=== PATIENT | female | born 1950 | race Caucasian/White ===

== ENCOUNTER 2016-11-19 10:04 | Emergency (ER) | payer MEDICARE, OTHER ==
[2005-05-22 17:50] VITALS: BP 113/49
[~2016-11-19] VITALS: Ht 154.9 cm; Wt 77.3 kg
[~2016-11-19 10:04] MED LIST: 00186-0370-20 IH; 00186-0372-20; CIPRO 250MG TA250 MG PO; COMBIVENT INH14.7 GM IH; DECADRON 1MG TAB1 MG PO; DOCETAXEL; IPRATROPIUM BROM3 M1 IH; LEVAQUIN 5500 MG/TA1 PO; PERCOCET 5/321 UDTAB PO; PREDNISONE20 MG PO; PROAIR HFA0.09 MG/AC; PROVENTIL0.09 MG/A1 IH; RT SPIRIVA18 MCG; RT SPIRIVA18 MCG IH; SPIRIVA INH IH; SPIRIVA18 MCG IH; TESSALON PERLE200 MG PO; VENTOLIN0.09 MG IH; VICODIN 5/5001 UDTAB PO; VITAMIN D1000 IU; ZITHROMAX 250M250 MG PO; ZOCOR 40MG40 MG PO; [UNRECOGNIZED DRUG - OTHER]; [UNRECOGNIZED DRUG - REMARK]
[2016-11-19 10:11] VITALS: TEMP 97.2
[2016-11-19] MEDS ORDERED: PROAIR HFA0.09 MG/AC IH (10:36)
[2016-11-19 11:28] LABS: BASO # 0.1 (0.0-0.2); BASO % 0.8 % (0.0-2.0); EOS # 0.1 (0.0-0.7); EOS % 0.8 % (0-4.0); GRAN # 5.6 (1.4-6.5); GRAN % 62.8 % (42.2-75.2); HEMATOCRIT 49.4 % (37.0-47.0); HEMOGLOBIN 15.9 g/dl (12.5-16.0); LYMPH # 2.4 (1.2-3.4); LYMPH % 27.4 % (20.0-51.0); MEAN CELL VOLUME 93 fl (80.0-100.0); MEAN CORPUSCULAR HEMOGLOBIN 30 pg (27.0-31.0); MEAN CORPUSCULAR HGB CONC 32 g/dl (33.0-37.0); MEAN PLATELET VOLUME 9.9 fl (7.4-10.4); MONO # 0.7 (0.1-0.6); MONO % 7.9 % (1.7-9.3); PLATELET COUNT 320 K/mm3 (130-400); RED BLOOD COUNT 5.34 M/mm3 (4.10-5.30); REDCELL DISTRIBUTION WIDTH-CV 15.6 % (11.5-14.5); WHITE BLOOD COUNT 8.9 K/mm3 (4.8-10.8)
[2016-11-19 11:40] LABS: ADJUSTED CALCIUM 9.5 mg/dL (8.4-10.2); ALANINE AMINOTRANSFERASE 15 U/L (9-52); ALBUMIN 4.1 gm/dL (3.5-5.0); ALKALINE PHOSPHATASE 86 U/L (50-136); ANION GAP 5 mmol/L (7-16); BILIRUBIN,TOTAL 0.8 mg/dL (0.0-1.0); BLOOD UREA NITROGEN 11 mg/dL (7-17); C-REACTIVE PROTEIN 1.2 mg/dL (0.0-0.9); CALCIUM 9.6 mg/dL (8.4-10.2); CARBON DIOXIDE 29 mmol/L (22-30); CHLORIDE 102 mmol/L (98-107); CREATININE, serum 0.53 mg/dL (0.52-1.25); GLUCOSE 93 mg/dL (74-106); LIPASE 33 U/L (23-300); POTASSIUM 4.1 mmol/L (3.4-5.0); PROTHROMBIN TIME 10.7 SECONDS (9.7-12.8); SODIUM 137 mmol/L (137-145); TOTAL PROTEIN 7.5 gm/dL (6.4-8.2)
[2016-11-19 11:42] LABS: PARTIAL THROMBOPLASTIN TIME 33.7 SECONDS (26.0-37.0)
[2016-11-19 11:48] LABS: B-TYPE NATRIURETIC PEPTIDE 261 pg/mL (0-125); TROPONIN-I < 0.012 ng/mL (0.000-0.034)
[2016-11-19] MEDS ORDERED: NITROSTAT0.3 MG SL (13:13)
[2016-11-19] MEDS ORDERED: PREDNISONE20 MG PO (13:13)
[2016-11-19 13:39] VITALS: BP 115/69; PULSE 91
== END 2016-11-19 13:41 | disposition home or self-care (01) ==
LOC: COL.ER 10:04
PROVIDERS: Emergency Medicine
DX: R07.89 Other chest pain (principal); J44.9 Chronic obstructive pulmonary disease, unspecified; F17.210 Nicotine dependence, cigarettes, uncomplicated; Z87.09 Personal history of other diseases of the respiratory system
CPT/HCPCS: J7512

== ENCOUNTER → 2017-01-12 | Outpatient (CLI) | payer MEDICARE, OTHER ==
[~2017-01-12] MED LIST changes: +NITROSTAT0.3 MG SL; +PROAIR HFA0.09 MG/AC IH
== END ==
LOC: MC.RAD 15:34
DX: Z12.31 Encounter for screening mammogram for malignant neoplasm of breast (principal)

== ENCOUNTER → 2017-01-19 | Outpatient (CLI) | payer MEDICARE, OTHER | LOC: MC.RAD 12:45 | DX: R92.2 Inconclusive mammogram (principal) ==

== ENCOUNTER 2017-11-08 11:05 | Observation (INO) | payer MEDICARE, OTHER ==
[~2017-11-08] VITALS: Ht 154.9 cm; Wt 81.8 kg
[2017-11-08] MEDS ORDERED: LIPITOR 10MG10 MG PO (11:38)
[2017-11-08] MEDS ORDERED: DRISDOL50000 IU PO (11:40)
[2017-11-08 12:13] LABS: BASO % 0.3 % (0.0-2.0); EOS % 0.4 % (0-4.0); GRAN # 6.4 (1.4-6.5); GRAN % 68.6 % (42.2-75.2); HEMATOCRIT 49.8 % (37.0-47.0); HEMOGLOBIN 15.9 g/dl (12.5-16.0); LYMPH # 2.1 (1.2-3.4); LYMPH % 21.9 % (20.0-51.0); MEAN CELL VOLUME 95 fl (80.0-100.0); MEAN CORPUSCULAR HEMOGLOBIN 30 pg (27.0-31.0); MEAN CORPUSCULAR HGB CONC 32 g/dl (33.0-37.0); MEAN PLATELET VOLUME 10.2 fl (7.4-10.4); MONO # 0.8 (0.1-0.6); MONO % 8.5 % (1.7-9.3); PLATELET COUNT 270 K/mm3 (130-400); RED BLOOD COUNT 5.25 M/mm3 (4.10-5.30); REDCELL DISTRIBUTION WIDTH-CV 16.6 % (11.5-14.5)
[2017-11-08 12:25] LABS: ALBUMIN 3.7 gm/dL (3.5-5.0); BILIRUBIN,TOTAL 0.7 mg/dL (0.0-1.0); C-REACTIVE PROTEIN 1.1 mg/dL (0.0-0.9); CALCIUM 9.2 mg/dL (8.4-10.2); CREATININE, serum 0.59 mg/dL (0.52-1.25); POTASSIUM 4.1 mmol/L (3.4-5.0); TOTAL PROTEIN 6.8 gm/dL (6.4-8.2)
[2017-11-08] MEDS ORDERED: PREDNISONE20 MG PO (13:02)
[2017-11-08] MEDS ORDERED: ZITHROMAX Z PA250 MG PO (13:22)
[2017-11-08 14:11] LABS: ARTERIAL BLD GAS O2 SATURATION 90.9 % (92-100); ARTERIAL BLD GAS TCO2 CT 35.4; ARTERIAL BLOOD GAS BASE EXCESS 5.2 (-2-2); ARTERIAL BLOOD GAS HCO3 33.5 meq/L (22-26); ARTERIAL BLOOD GAS PCO2 63.6 mmHg (35-45); ARTERIAL BLOOD GAS PO2 60.2 mmHg (80-100); ARTERIAL BLOOD GAS pH 7.34 (7.35-7.45)
[2017-11-08 16:35] VITALS: BP 125/70; PULSE 104; TEMP 98.7
[2017-11-08 20:34] VITALS: BP 110/48; PULSE 108; TEMP 99.2
[2017-11-09 00:51] VITALS: BP 124/64; PULSE 99; TEMP 98.9
[2017-11-09 04:28] VITALS: BP 124/67; PULSE 95; TEMP 97.6
[2017-11-09 07:35] LABS: CALCIUM 9.3 mg/dL (8.4-10.2); CREATININE, serum 0.47 mg/dL (0.52-1.25); POTASSIUM 4.3 mmol/L (3.4-5.0)
[2017-11-09 08:19] VITALS: BP 113/56; PULSE 101; TEMP 98.2
[2017-11-09 11:24] VITALS: BP 112/52; PULSE 95; TEMP 98.5
[2017-11-09] MEDS ORDERED: PREDNISONE20 MG PO (12:02)
== END 2017-11-09 15:00 | disposition home or self-care (01) ==
LOC: COL.ER 11:05 → MEDICAL 14:22
PROVIDERS: Family Medicine; Internal Medicine
DX: J96.02 Acute respiratory failure with hypercapnia (principal); J44.1 Chronic obstructive pulmonary disease with (acute) exacerbation; E78.5 Hyperlipidemia, unspecified; R00.0 Tachycardia, unspecified; Z90.12 Acquired absence of left breast and nipple; Z79.51 Long term (current) use of inhaled steroids; Z96.653 Presence of artificial knee joint, bilateral; Z85.3 Personal history of malignant neoplasm of breast; Z87.891 Personal history of nicotine dependence
CPT/HCPCS: G0378; G8978-GP; G8979-GP; J1650; J2920; J2930

== ENCOUNTER 2018-09-11 23:01 | Emergency (ER) | payer MEDICARE, OTHER ==
[2005-05-22 17:50] VITALS: BP 113/49
[~2018-09-11] VITALS: Ht 154.9 cm; Wt 81.8 kg
[~2018-09-11 23:01] MED LIST changes: +DRISDOL50000 IU PO; +LIPITOR 10MG10 MG PO; +ZITHROMAX Z PA250 MG PO
[2018-09-11 23:04] VITALS: TEMP 98.1
[2018-09-11 23:41] LABS: BASO # 0.1 (0.0-0.2); BASO % 0.3 % (0.0-2.0); EOS # 0.1 (0.0-0.7); EOS % 0.3 % (0-4.0); GRAN # 16.6 (1.4-6.5); GRAN % 87.2 % (42.2-75.2); HEMATOCRIT 41.3 % (37.0-47.0); HEMOGLOBIN 12.8 g/dl (12.5-16.0); LYMPH # 1.3 (1.2-3.4); LYMPH % 6.8 % (20.0-51.0); MEAN CELL VOLUME 99 fl (80.0-100.0); MEAN CORPUSCULAR HEMOGLOBIN 31 pg (27.0-31.0); MEAN CORPUSCULAR HGB CONC 31 g/dl (33.0-37.0); MEAN PLATELET VOLUME 9.3 fl (7.4-10.4); MONO # 0.9 (0.1-0.6); MONO % 4.9 % (1.7-9.3); PLATELET COUNT 299 K/mm3 (130-400); RED BLOOD COUNT 4.18 M/mm3 (4.10-5.30); REDCELL DISTRIBUTION WIDTH-CV 14.6 % (11.5-14.5)
[2018-09-11 23:55] LABS: ALANINE AMINOTRANSFERASE < 6 U/L (9-52); ALBUMIN 3.8 gm/dL (3.5-5.0); ALKALINE PHOSPHATASE 69 U/L (50-136); ANION GAP 6 mmol/L (7-16); AST,SGOT 17 U/L (15-37); BILIRUBIN,TOTAL 0.2 mg/dL (0.0-1.0); BLOOD UREA NITROGEN 21 mg/dL (7-17); C-REACTIVE PROTEIN 0.8 mg/dL (0.0-0.9); CALCIUM 9.1 mg/dL (8.4-10.2); CARBON DIOXIDE 32 mmol/L (22-30); CHLORIDE 104 mmol/L (98-107); CREATININE, serum 0.43 (0.52-1.25); GLUCOSE 127 mg/dL (74-106); LIPASE 36 U/L (23-300); SODIUM 142 mmol/L (137-145)
[2018-09-12 00:04] LABS: TROPONIN-I < 0.012 ng/mL (0.000-0.035)
[2018-09-12 01:34] LABS: COLLECTION METHOD CLEAN CATCH
[2018-09-12 01:39] LABS: MUCOUS Present /lpf; PH 5 (5-8); SQUAMOUS EPITHELIAL 0-2 /hpf; URINE APPEARANCE Clear; URINE BACTERIA None Seen /hpf; URINE BILIRUBIN Negative (NEGATIVE); URINE BLOOD Negative (NEGATIVE); URINE COLOR Yellow; URINE GLUCOSE Negative (NEGATIVE); URINE KETONE Negative (NEGATIVE); URINE LEUKOCYTE ESTERASE Negative (NEGATIVE); URINE NITRATE Negative (NEGATIVE); URINE PROTEIN(semi-quant) Negative (NEGATIVE); URINE UROBILINOGEN Negative (NEGATIVE)
[2018-09-12 02:00] VITALS: BP 108/63
[2018-09-12] MEDS ORDERED: ZOFRAN 4MG T4 MG/TAB PO (02:14)
[2018-09-12] MEDS ORDERED: FLAGYL500 MG PO (02:14)
[2018-09-12] MEDS ORDERED: CIPRO 500MG TA500 MG PO (02:14)
[2018-09-12] MEDS ORDERED: NORCO 325 MG-51 TAB PO (02:14)
[2018-09-12 02:49] VITALS: PULSE 80
== END 2018-09-12 02:51 | disposition home or self-care (01) ==
LOC: COL.ER 23:01
PROVIDERS: Emergency Medicine
DX: K52.9 Noninfective gastroenteritis and colitis, unspecified (principal); J44.9 Chronic obstructive pulmonary disease, unspecified; Z85.3 Personal history of malignant neoplasm of breast; F17.210 Nicotine dependence, cigarettes, uncomplicated
CPT/HCPCS: J3010; J7030; Q9967

== ENCOUNTER → 2019-03-30 | Outpatient (CLI) | payer MEDICARE, OTHER ==
[~2019-03-30] MED LIST changes: +CIPRO 500MG TA500 MG PO; +FLAGYL500 MG PO; +NORCO 325 MG-51 TAB PO; +ZOFRAN 4MG T4 MG/TAB PO
== END ==
LOC: MC.RAD 15:13
DX: Z12.31 Encounter for screening mammogram for malignant neoplasm of breast (principal); N64.89 Other specified disorders of breast; R92.1 Mammographic calcification found on diagnostic imaging of breast; Z98.890 Other specified postprocedural states

== ENCOUNTER → 2019-04-07 | Outpatient (CLI) | payer MEDICARE, OTHER | LOC: MC.RAD 10:04 | DX: R92.0 Mammographic microcalcification found on diagnostic imaging of breast (principal) ==

== ENCOUNTER → 2019-04-10 | Outpatient (CLI) | payer MEDICARE, OTHER | LOC: MC.RAD 08:07 | DX: R92.1 Mammographic calcification found on diagnostic imaging of breast (principal); Z98.890 Other specified postprocedural states; Z98.82 Breast implant status ==

== ENCOUNTER 2019-10-31 08:19 | Day surgery (SDC) | payer MEDICARE, OTHER ==
[2005-05-22 17:50] VITALS: BP 113/49
[~2019-10-31] VITALS: Ht 152.4 cm; Wt 140.8 kg
[2019-10-31] VITALS (10 sets, daily range): BP systolic 119–180; BP diastolic 56–96; PULSE 75–93; TEMP 98.3
[~2019-10-31 08:19] MED LIST changes: +NITROSTAT0.4 MG/TAB SL
[2019-10-31 09:27] LABS: HEMATOCRIT 38.6 % (37.0-47.0); HEMOGLOBIN 11.9 g/dl (12.5-16.0); MEAN CELL VOLUME 93 fl (80.0-100.0); MEAN CORPUSCULAR HEMOGLOBIN 29 pg (27.0-31.0); MEAN CORPUSCULAR HGB CONC 31 g/dl (33.0-37.0); MEAN PLATELET VOLUME 9.3 fl (7.4-10.4); PLATELET COUNT 326 K/mm3 (130-400); RED BLOOD COUNT 4.14 M/mm3 (4.10-5.30); REDCELL DISTRIBUTION WIDTH-CV 14.6 % (11.5-14.5)
[2019-10-31 09:29] LABS: INR 1.1 (0.8-3.0); PROTHROMBIN TIME 11.9 SECONDS (9.7-12.8)
[2019-10-31 09:32] LABS: PARTIAL THROMBOPLASTIN TIME 34.8 SECONDS (26.0-37.0)
[2019-10-31 09:44] LABS: CALCIUM 9.6 mg/dL (8.4-10.2); CREATININE, serum 0.55 (0.52-1.25); POTASSIUM 3.8 mmol/L (3.4-5.0)
[2019-10-31] MEDS ORDERED: IPRATROPIUM BROM3 M1 IH (10:06)
[2019-10-31] MEDS ORDERED: OYSTER SHELL CA1 TA6 PO (10:08)
[2019-10-31] MEDS ORDERED: CRESTOR20 MG PO (10:08)
[2019-10-31] MEDS ORDERED: ASPIRIN E.C. 8181 MG PO (10:09)
--- NOTE | 2019-10-31 11:00 | NUR ---
SEE MERGE DOCUMENTATION FOR MEDICATION ADMINISTRATION TIMES AND INTRA/POST PROCEDURE SEDATION ASSESSMENTS. RIGHT HAND BARBEAU TEST POSITIVE.
--- NOTE | 2019-10-31 11:30 | NUR ---
PT BACK TO [facility] AFTER NEGATIVE HEART CATH. PT IS AWAKE AND ALERT, PWD, TR BAND IN PLACE, CMS INTACT DISTAL. LUNCH ORDERED. PT AWARE OF POC, WCTM.
--- NOTE | 2019-10-31 14:25 | NUR ---
Pt has done well during her recovery. TR band was deflated between 1330 and 1415. site dressed with bandaid and mild compression dressing. cms intact distal. there has been no bleeding nor hematoma. i have reviewed dc and fu instructions with pt and she has no questions. pt has been able to eat and drink, and she has been up ambulating in room with steady gait. iv is dc'd with cath intact, dressing applied. to exit via wheelchair at this time.
== END 2019-10-31 14:30 | disposition home or self-care (01) ==
LOC: COL.CAR 08:19
PROVIDERS: Internal Medicine Cardiovascular Disease
DX: R07.9 Chest pain, unspecified (principal); R94.39 Abnormal result of other cardiovascular function study; J44.9 Chronic obstructive pulmonary disease, unspecified; K21.9 Gastro-esophageal reflux disease without esophagitis; K58.9 Irritable bowel syndrome, unspecified; M81.0 Age-related osteoporosis without current pathological fracture; E78.2 Mixed hyperlipidemia; E66.01 Morbid (severe) obesity due to excess calories; Z68.41 Body mass index [BMI] 40.0-44.9, adult; Z99.81 Dependence on supplemental oxygen; Z85.3 Personal history of malignant neoplasm of breast; Z87.891 Personal history of nicotine dependence; Z88.8 Allergy status to other drugs, medicaments and biological substances; Z88.7 Allergy status to serum and vaccine
CPT/HCPCS: J1644; J2250; J2405; J3010; Q9967

== ENCOUNTER 2021-07-28 09:51 | Inpatient (IN) | payer MEDICARE, OTHER ==
[~2021-07-28] VITALS: Ht 152.4 cm; Wt 107.4 kg
[~2021-07-28 09:51] MED LIST changes: +ASPIRIN E.C. 8181 MG PO; +CRESTOR20 MG PO; +OYSTER SHELL CA1 TA6 PO
[2021-07-28 11:00] LABS: BASO % 0.4 % (0.0-2.0); EOS % 0.4 % (0.0-4.0); GRAN # 8.4 K/mm3 (1.4-6.5); GRAN % 73.8 % (42.2-75.2); HEMATOCRIT 38.6 % (37.0-47.0); HEMOGLOBIN 11.7 g/dl (12.5-16.0); LYMPH # 1.9 K/mm3 (1.2-3.4); LYMPH % 16.3 % (20.0-51.0); MEAN CELL VOLUME 93 fl (80.0-100.0); MEAN CORPUSCULAR HEMOGLOBIN 28 pg (27-31); MEAN CORPUSCULAR HGB CONC 30 g/dl (33.0-37.0); MONO % 8.5 % (1.7-9.3); PLATELET COUNT 344 K/mm3 (130-400); RED BLOOD COUNT 4.16 M/mm3 (4.10-5.30); REDCELL DISTRIBUTION WIDTH-CV 15.7 % (11.5-14.5)
[2021-07-28 11:15] LABS: ALANINE AMINOTRANSFERASE 22 U/L (0-55); ALBUMIN 3.2 gm/dL (3.4-4.8); ALKALINE PHOSPHATASE 58 U/L (40-150); ANION GAP 9 mmol/L (7-16); AST,SGOT 17 U/L (5-34); BILIRUBIN,TOTAL 0.2 mg/dL (0.2-1.2); BLOOD UREA NITROGEN 15 mg/dL (10-20); C-REACTIVE PROTEIN 0.95 mg/dL (0.00-0.50); CARBON DIOXIDE 33 mmol/L (23-31); CHLORIDE 101 mmol/L (98-107); CREATININE, serum 0.62 mg/dL (0.57-1.11); GLUCOSE 108 mg/dL (70-99); POTASSIUM 3.3 mmol/L (3.5-4.5); SODIUM 143 mmol/L (136-145); TOTAL PROTEIN 6.9 gm/dL (6.2-8.1)
[2021-07-28 11:21] LABS: TROPONIN-I < 0.010 ng/mL (0.00-0.033)
[2021-07-28 16:54] VITALS: BP 113/88; PULSE 108; TEMP 97.4
--- NOTE | 2021-07-28 17:27 | NUR ---
Patient admitted from the ER, at the bedside. Patient states it feels like something is sitting on her chest. Remains on 3L O2 via NC and is tolerating it well. All admission assessments completed.
[2021-07-28 19:49] VITALS: BP 139/64; PULSE 108; TEMP 98.1
--- NOTE | 2021-07-28 20:50 | NUR ---
Patient is resting in bed, alert and oriented x 4, tachycardic. 100-110. SOB, with cough. 3L O2 NC. Telemetry in place, NSR. Receiving a dose of antibiotics. Denies pain. Assessment completed. Food tray aside. States she will eat later. No other needs at this time. Call light within reach.
[2021-07-29 00:12] VITALS: BP 114/64; PULSE 99; TEMP 97.8
[2021-07-29 03:58] VITALS: BP 140/81; PULSE 102; TEMP 97.9
[2021-07-29 06:11] LABS: BASO % 0.1 % (0.0-2.0); GRAN # 9.1 K/mm3 (1.4-6.5); HEMATOCRIT 37.1 % (37.0-47.0); HEMOGLOBIN 11.3 g/dl (12.5-16.0); LYMPH # 0.9 K/mm3 (1.2-3.4); LYMPH % 8.7 % (20.0-51.0); MEAN CELL VOLUME 93 fl (80.0-100.0); MEAN CORPUSCULAR HEMOGLOBIN 28 pg (27-31); MEAN CORPUSCULAR HGB CONC 31 g/dl (33.0-37.0); MEAN PLATELET VOLUME 9.1 fl (7.4-10.4); MONO # 0.4 K/mm3 (0.1-0.6); MONO % 3.3 % (1.7-9.3); PLATELET COUNT 328 K/mm3 (130-400); RED BLOOD COUNT 4.01 M/mm3 (4.10-5.30); REDCELL DISTRIBUTION WIDTH-CV 15.5 % (11.5-14.5)
--- NOTE | 2021-07-29 06:20 | NUR ---
Patient woke up since 4am and was unable to comeback to sleep. She has been stable, no other needs. Report will be given to day RN.
[2021-07-29 06:23] LABS: CALCIUM 9.1 mg/dL (8.4-10.2); CREATININE, serum 0.59 mg/dL (0.57-1.11); POTASSIUM 4.1 mmol/L (3.5-4.5)
--- NOTE | 2021-07-29 07:43 | NUR ---
Patient sitting up in bed upon entering the room. States she is scared because of the news she received last night. This RN informed the patient about Human Metapneumovirus and what it is. Patient concerned about her and whether or not he could come to visit. Patient informed that could still visit, he just needs to wear a mask while in the room.
[2021-07-29 07:45] VITALS: BP 156/75; PULSE 102; TEMP 98.7
[2021-07-29 12:23] VITALS: BP 1143/47; BP 143/47; PULSE 104; TEMP 98.8
--- NOTE | 2021-07-29 15:12 | NUR ---
cloth printing utility worker met with patient to discuss discharge plan. Patient lives at home with her Isac ([phone]) in [place]. Patient reports that she in mainly independent with her ADL's but her daughter comes down from [place] x2 a week to give the patient a shower. Patient does use a rollator to assist with ambulation. She states that she has a shower chair and grab bars in her shower that her has installed.She is on 3L of [place] oxygen at baseline that is managed through [facility]. PCP is Dr. Bourne and she uses [facility] for perscriptions. Patient states that she would like someone to come out and help with her showering and light house cleaning. She used to work for [employer] and would like to be set up with them. I informed the patient that we could get her PT/OT HH orders but that house cleaning would be out of pocket. Patient would like to talk with her about private duty caregivers before agreeing to something. Discharge plan: Home with [facility]
[2021-07-29 15:33] VITALS: BP 117/44; PULSE 104; TEMP 98.2
--- NOTE | 2021-07-29 18:19 | NUR ---
Patient has done well today. IV infiltrated in right forearm, new IV started in right upper arm. Patient remains concerned about swelling in BLE. Swelling is non-pitting, no reddness, warmth, or tenderness.
[2021-07-29 19:53] VITALS: BP 158/76; PULSE 118; TEMP 98.6
--- NOTE | 2021-07-29 21:30 | NUR ---
Patient is resting in bed. She is alert and oriented x 4, VSS. States she has discomfort in her right lower leg. BLE with edema 1, no redness, no warm. Telemetry in place, NSR. Assessment completed, medications provided. No other needs at this time. Call light within reach.
[2021-07-30 00:09] VITALS: BP 129/54; PULSE 91; TEMP 98
[2021-07-30 04:11] VITALS: BP 136/61; PULSE 94; TEMP 98.2
[2021-07-30 06:22] LABS: BASO % 0.2 % (0.0-2.0); GRAN # 15.2 K/mm3 (1.4-6.5); GRAN % 88.8 % (42.2-75.2); HEMATOCRIT 39.7 % (37.0-47.0); HEMOGLOBIN 12.1 g/dl (12.5-16.0); LYMPH # 1.2 K/mm3 (1.2-3.4); LYMPH % 6.9 % (20.0-51.0); MEAN CELL VOLUME 90 fl (80.0-100.0); MEAN CORPUSCULAR HEMOGLOBIN 28 pg (27-31); MEAN CORPUSCULAR HGB CONC 31 g/dl (33.0-37.0); MONO # 0.5 K/mm3 (0.1-0.6); MONO % 2.9 % (1.7-9.3); PLATELET COUNT 330 K/mm3 (130-400); RED BLOOD COUNT 4.39 M/mm3 (4.10-5.30); REDCELL DISTRIBUTION WIDTH-CV 15.9 % (11.5-14.5)
[2021-07-30 06:38] LABS: CALCIUM 9.1 mg/dL (8.4-10.2); CREATININE, serum 0.63 mg/dL (0.57-1.11); POTASSIUM 4.5 mmol/L (3.5-4.5)
--- NOTE | 2021-07-30 06:58 | NUR ---
Patient has had an uneventful night. Continues with cough and difficulty breathing. Has had episodes of tachycardia 100's. Report will be given to day RN.
[2021-07-30 08:05] VITALS: BP 135/75; PULSE 109; TEMP 98.3
--- NOTE | 2021-07-30 09:31 | NUR ---
Pt assessment complete. Pt is sitting up on side of bed upon entry, she is A/Ox4. Her breathing has improved per patient, but still has some SOB with exertion. Productive cough present. Pt denies any pain. No N/V. IV infiltrated during medication administration. Elevation and warm pack provided. Isolation precautions in place. Call light within reach.
[2021-07-30] MEDS ORDERED: IPRATROPIUM BROM3 M1 IH (10:06)
[2021-07-30] MEDS ORDERED: PROAIR HFA0.09 MG/AC IH (10:09)
[2021-07-30] MEDS ORDERED: PREDNISONE20 MG PO (10:09)
--- NOTE | 2021-07-30 13:11 | NUR ---
Discharge paperwork and instructions reviewed with patient. All questions answered at this time. Pt wheeled out of facility at this time.
--- NOTE | 2021-07-30 13:52 | NUR ---
Patient's HH orders and clinical referral faxed to [facility]. Called and spoke with Andrea at [facility] to notify her of the patient's discharge today.
== END 2021-07-30 13:12 | disposition home health service (06) | DRG 189 ==
LOC: COL.ER 09:51 → MEDICAL 13:04
PROVIDERS: Nurse Practitioner; Physician Assistant; ADMIT Student in an Organized Health Care Education/Training Program
DX: J96.21 Acute and chronic respiratory failure with hypoxia (principal); J44.1 Chronic obstructive pulmonary disease with (acute) exacerbation; E78.5 Hyperlipidemia, unspecified; B97.81 Human metapneumovirus as the cause of diseases classified elsewhere; Z99.81 Dependence on supplemental oxygen; Z85.89 Personal history of malignant neoplasm of other organs and systems; Z85.3 Personal history of malignant neoplasm of breast; Z87.891 Personal history of nicotine dependence
CPT/HCPCS: 99222-AI; 99232-AI; 99239; J0456; J1650; J2920; J2930; J7050

== ENCOUNTER → 2023-07-28 | Outpatient (CLI) | payer MEDICARE, OTHER ==
[2005-05-22 17:50] VITALS: BP 113/49
[2023-07-28] VITALS (12 sets, daily range): BP systolic 97–154; BP diastolic 62–86; PULSE 88–102; TEMP 97.8
[~2023-07-28] VITALS: Ht 154.9 cm; Wt 81.4 kg
[~2023-07-28] MED LIST changes: +Midazolam 2 MG/2 ML VIAL IV SCH; +fentaNYL 50 MCG/ML 2 ML VIAL IV SCH
[2023-07-28 09:30] LABS: INR 1.2 (0.8-3.0); PROTHROMBIN TIME 13.2 SECONDS (9.7-12.8)
--- NOTE | 2023-07-28 09:51 | NUR ---
Pt to ct per wheelchair. Pt up and onto ct table in supine position. Monitors applied. O2 on at 3l/nc. Pt wears O2 continuously at home.
--- NOTE | 2023-07-28 10:18 | NUR ---
Specimen obtained by Dr Davis and placed in formalin. Specimen labeled.
== END ==
LOC: COL.RAD 08:46
PROVIDERS: Internal Medicine
DX: C34.12 Malignant neoplasm of upper lobe, left bronchus or lung (principal); R16.0 Hepatomegaly, not elsewhere classified
CPT/HCPCS: J2250; J3010

== ENCOUNTER 2023-08-20 11:23 | Day surgery (SDC) | payer MEDICARE, OTHER ==
[~2023-08-20] VITALS: Ht 154.9 cm; Wt 80.5 kg
[~2023-08-20 11:23] MED LIST changes: +LR 1,000 ML IV SCH; -Midazolam 2 MG/2 ML VIAL IV SCH; -fentaNYL 50 MCG/ML 2 ML VIAL IV SCH
--- NOTE | 2023-08-20 11:29 | NUR ---
PATIENT ADMITTED TO ROOM 6 PER WHEELCHAIR ON OXYGEN AT 3L PER NC ACCOMPANIED BY SPOUSE. STATES THAT SHE RECEIVED CHEMOTHERAPY ON WEDNESDAY AND IS WEAK SINCE RECEIVING THAT. PATIENT WAS CALLED TO ARRIVE EARLY D/T CHANGE IN SURGERY SCHEDULE. CONSENTS SIGNED AFTER VERBALIIZING UNDERSTANDING. HAD PORT WITH BREAST CANCER TREATMENTS YEARS AGO. TOOK NORCO 5MG TAB THIS AM AT 0800. WAS ALSO STARTED ON ANTIBIOTIC FOR LUNG ISSUE. RESTING ON CART AND CALL LIGHT IN REACH.
[2023-08-20] MEDS ORDERED: Lidocaine PF 2% (20 MG/ML) 5 ML VIAL ONE (12:01)
[2023-08-20 12:06] LABS: BASO % 0.3 % (0.0-2.0); EOS % 0.1 % (0.0-4.0); GRAN # 11.8 K/mm3 (1.4-6.5); GRAN % 87.8 % (42.2-75.2); LYMPH # 1.1 K/mm3 (1.2-3.4); LYMPH % 8.2 % (20.0-51.0); MEAN CELL VOLUME 83 fl (80.0-100.0); MEAN CORPUSCULAR HGB CONC 30 g/dl (33.0-37.0); MEAN PLATELET VOLUME 8.5 fl (7.4-10.4); MONO # 0.4 K/mm3 (0.1-0.6); MONO % 3.1 % (1.7-9.3); PLATELET COUNT 472 K/mm3 (130-400); RED BLOOD COUNT 3.94 M/mm3 (4.10-5.30); REDCELL DISTRIBUTION WIDTH-CV 16.4 % (11.5-14.5)
[2023-08-20 12:07] LABS: HEMOGLOBIN 9.7 g/dl (12.5-16.0); MEAN CORPUSCULAR HEMOGLOBIN 25 pg (27-31)
[2023-08-20 12:08] LABS: HEMATOCRIT 32.7 % (37.0-47.0)
[2023-08-20 12:23] LABS: CREATININE, serum 0.61 mg/dL (0.57-1.11); POTASSIUM 4.2 mEq/L (3.5-4.5)
[2023-08-20] MEDS ORDERED: LEVAQUIN 5500 MG/TA1 PO (12:33)
[2023-08-20 12:43] VITALS: BP 131/48; PULSE 104; TEMP 98.2
--- NOTE | 2023-08-20 13:56 | NUR ---
PATIENT RETURNS TO ROOM 6 PER CART FROM SURGERY ACCOMPANIED BY CHEN VU AND DEBI Hua CRNA. PATIENT ON OXYGEN PER N/C AT 3L. RIGHT PORT A CATH SITE WITH WOUND EDGES WELL APPROXIMATED. VS 114/95, 105,18, TEMP 97.9. HEAD OF CART ELEVATED AND CXR COMPLETED TO CHECK PORT PLACEMENT. NOTED PURSED LIP BREATHING. HOB ELEVATED 30 DEGREES. ENCOURAGED TO BREATH THROUGH NOSE. WILL CONTINUE TO MONITOR. SPOUSE BROUGHT TO ROOM. CALL LIGHT IN REACH. SIDERAILS UP X2. 1411 STATES IS HAVING MORE DIFFICULTY BREATHING. DEBI Hua CRNA NOTIFIED AND ORDER RECEIVED FOR BREATHING TREATMENT AND ALSO PLACED ON MASK AT 10L OF OXYGEN. LUNGS DIMINISHED BUT NO WHEEZING OR CRACKLES. VS 0/69,101, 97%. 1417 SITTING UP ON CART AND BREATHING TREATMENT BEING ADMINISTERED BY RT. IS TOLERATING THIS. SATS 99% ON 10L OXYGEN PER MASK. 1426 VS 111/65, 109, 20 AND SATS 100% ON 10L PER MASK. BREATHING TREATMENT HAS BEEN COMPLETED. NOTED SWELLING ON THE RIGHT SIDE OF NECK AT PORT INSERTION SITE. DR. GASTON IN ROOM AND ICE BAG APPLIED PER HIS REQUEST. CXR VIEWED BY DR. GASTON AND NO ORDERS. WILL CONTINUE TO MONITOR. 1428 DEBI Hua CRNA IN THE ROOM AND CHECKS ON PATIENT. WILL CONTINUE OXYGEN AT 10L PER MASK. 1435 DIFFICULTY GETTING READING FOR BP. PATIENT MOVING ARMS FREQUENTLY. BP CUFF MOVED TO RLE. VS 163/68, 98, 99% SATS. SPOUSE IN ROOM AND COMFORTING SPOUSE. MORE RELAXED AND STATES IS FEELING BETTER AND NOTED LESS LABORED BREATHING. PATIENT REQUESTS TO SIT ON EDGE OF THE CART. SPOUSE IS TALKING AND COMFORTING SPOUSE. 1440 DR. GASTON AND DEBI Hua CRNA BACK IN ROOM TO ASSESS PATIENT. CONTINUES TO SIT ON EDGE OF CART AND CONVERSING WITH SPOUSE. CONTINUE WITH SAME TREATMENT AND OBSERVATION. SIPPING ON APPLE JUICE. SMILING AT SPOUSE NOW. 1445 VS 158/96, 110, 20. CONTINUES TO DANGLE ON EDGE OF CART AND BP CUFF ON THE RLE. LUNG SOUNDS ARE LESS DIMINISHED IN BASES NOW. 1450 ICE BAG REMAINS ON NECK. OXYGEN ON 4L PER N/C NOW PER PATIENT REQUEST SO SHE CAN DRINK. STATES WEARS OXYGEN AT 4L AT HOME WITH ACTIVITY AND 3L WHILE AT REST. SMILING AND LAUGHING WITH SPOUSE NOW. CONTINUES TO SIT ON EDGE OF CART. STATES IS HAVING LESS DIFFICULTY BREATHING AND IS FEELING MUCH BETTER NOW. 1505 117/92, 103, 20. SATS 97% ON 4L PER NC. LAYING DOWN NOW AND BP CUFF MOVED TO LUE. SPOUSE REMAINS IN THE ROOM. 1511 C/O RIGHT NECK SORENESS. STATES NORCO MAKES HER SLEEPY. DR. GASTON CONTACTED AND RECEIVED ORDER FOR TYLENOL 650MG PO FOR NECK SORENESS AND H/A. 1515 97/62, 108, 20, 99% ON 4L PER NC. AGAIN SITTING ON EDGE OF CART AND BP CUFF REMAINS ON LUE. TAKING FEW BITES OF CHOCOLATE ICE CREAM. 1530 REQUESTS TO HAVE OXYGEN DECRESED TO 3L PER NC AND DONE. VS 104/60, 105, 100% ON 3L PER NC. LAYING ON CART AND RESTING. 1545 VS 107/50, 93, 20, 100% ON 3L PER NC. STATES THAT TYLENOL HAS BEEN EFFECTIVE. 1600 HAS BEEN TALKING AND LAUGHING WITH SPOUSE. STATES SHE IS FEELING MUCH BETTER AND IS WISHING TO GO HOME. IV DISCONTINUED AND SITE IS FREE OF REDNESS OR SWELLING. BREATHING IS AT BASELINE ON ADMISSION ASSESS. 1610 DISMISSAL INSTRUCTIONS GIVEN FOR PORT A CATH PLACEMENT AND GIVEN BOOKLET WITH BRACELET. NO FURTHER SWELLING NOTED AT RIGHT NECK SITE. REMAINS ON 3L AND SATS 99-100%. 1614 PATIENT WAS PLACED ON PORTABLE OXYGEN THAT WAS ON ON ARRIVAL. ASSISTED IN WHEELCHAIR WITH STANDY ASSIST. PATIENT WAS ABLE TO DRESS SELF WITHOUT INCREASING DYSPNEA. TAKEN TO PRIVATE VEHICLE DRIVEN BY SPOUSE AND ASSISTED INTO CAR WITH DISMISSAL INSTRUCTIONS IN HAND. DISCHARGED ON 3L OXYGEN VIA PATIENTS OWN PORTABLE O2.
[2023-08-20] MEDS ORDERED: Albuterol/Ipratropium 3 MG-0.5 MG/3 ML Neb Soln IH ONE (14:30)
[2023-08-20] MEDS ORDERED: Acetaminophen 325 MG TAB PO SCH (15:15)
[2023-08-20] MEDS ORDERED: Acetaminophen 325 MG TAB PO ONE (15:30)
== END 2023-08-20 16:24 | disposition home or self-care (01) ==
LOC: SDCO 11:23
PROVIDERS: Surgery
DX: C34.12 Malignant neoplasm of upper lobe, left bronchus or lung (principal); C78.7 Secondary malignant neoplasm of liver and intrahepatic bile duct; Z87.891 Personal history of nicotine dependence
CPT/HCPCS: C1788; J0690; J1644; J2704; J7120

== ENCOUNTER 2023-11-06 08:17 | Emergency (ER) | payer MEDICARE, OTHER ==
[~2023-11-06] VITALS: Ht 154.9 cm; Wt 81.8 kg
[~2023-11-06 08:17] MED LIST changes: -LR 1,000 ML IV SCH
[2023-11-06 08:21] VITALS: TEMP 98.2
[2023-11-06] MEDS ORDERED: Morphine 4 MG/ML VIAL IV ONE (08:45)
[2023-11-06] MEDS ORDERED: NS 1,000 ML IV ONE (08:45)
[2023-11-06] MEDS ORDERED: Ondansetron 4 MG/2 ML VIAL IV ONE (08:45)
[2023-11-06 09:05] LABS: BASO % 0.5 % (0.0-2.0); EOS % 0.2 % (0.0-4.0); GRAN # 4.7 K/mm3 (1.4-6.5); GRAN % 82.9 % (42.2-75.2); LYMPH # 0.7 K/mm3 (1.2-3.4); LYMPH % 12.9 % (20.0-51.0); MEAN CELL VOLUME 95 fl (80.0-100.0); MEAN CORPUSCULAR HGB CONC 30 g/dl (33.0-37.0); MEAN PLATELET VOLUME 8.8 fl (7.4-10.4); MONO # 0.2 K/mm3 (0.1-0.6); MONO % 3.3 % (1.7-9.3); PLATELET COUNT 247 K/mm3 (130-400); RED BLOOD COUNT 3.44 M/mm3 (4.10-5.30); REDCELL DISTRIBUTION WIDTH-CV 20.2 % (11.5-14.5)
[2023-11-06 09:08] LABS: HEMATOCRIT 32.7 % (37.0-47.0); HEMOGLOBIN 9.7 g/dl (12.5-16.0); MEAN CORPUSCULAR HEMOGLOBIN 28 pg (27-31)
[2023-11-06 09:20] LABS: ALBUMIN 3.2 g/dL (3.4-4.8); BILIRUBIN,TOTAL 0.3 mg/dL (0.2-1.2); CALCIUM 9.7 mg/dL (8.4-10.2); CREATININE, serum 0.58 mg/dL (0.57-1.11)
[2023-11-06] MEDS ORDERED: Iohexol 300 - 100 ML VIAL IV ONE (09:33)
[2023-11-06] MEDS ORDERED: NS 100 ML IV ONE (09:34)
[2023-11-06 10:41] LABS: COLLECTION METHOD CLEAN CATCH
[2023-11-06 11:10] LABS: PH 5.5 (5.0-8.5); URINE APPEARANCE CLEAR (CLEAR/HAZY); URINE BLOOD 2+ (NEGATIVE); URINE COLOR YELLOW (YELLOW); URINE GLUCOSE NEGATIVE (NEGATIVE); URINE KETONE NEGATIVE (NEGATIVE); URINE NITRATE NEGATIVE (NEGATIVE); URINE PROTEIN(semi-quant) 1+ (NEGATIVE); URINE UROBILINOGEN 0.2 E.U/dL (0.2-1.0)
[2023-11-06 11:27] LABS: MUCOUS PRESENT (NOT PRESENT); URINE BACTERIA OCCASIONAL /hpf (NONE SEEN)
[2023-11-06] MEDS ORDERED: CEFTIN 250250 MG/TAB PO (11:29)
[2023-11-06] MEDS ORDERED: NORCO 325 MG-51 TAB PO (11:29)
[2023-11-06 11:51] VITALS: BP 140/67; PULSE 93
== END 2023-11-06 11:51 | disposition home or self-care (01) ==
LOC: COL.ER 08:17
PROVIDERS: Family Medicine
DX: N30.00 Acute cystitis without hematuria (principal); F17.200 Nicotine dependence, unspecified, uncomplicated
CPT/HCPCS: J2270; J2405; J7030; Q9967